=== PATIENT | female | born 1950 | race Caucasian/White ===

== ENCOUNTER 2020-11-15 17:01 | Emergency (ER) | payer OTHER ==
[~2020-11-15] VITALS: Ht 162.6 cm; Wt 63.5 kg
[2020-11-15] MEDS ORDERED: SODIUM CHLORIDE 0.9% 1,000 ML IV ONE ×2 (17:45)
[2020-11-15 18:11] LABS: Albumin 2.9 g/dL (3.4-5.0); Anion Gap 11 (5-15); Blood Urea Nitrogen 10 mg/dL (7-18); Calcium 8.9 mg/dL (8.5-10.1); Carbon Dioxide 23 mmol/L (21-32); Chloride 102 mmol/L (98-107); Glucose 119 mg/dL (74-106); Potassium 3.6 mmol/L (3.5-5.1); Sodium 136 mmol/L (136-145)
[2020-11-15 18:16] LABS: Alanine Aminotransferase 10 U/L (13-56); Alkaline Phosphatase 57 U/L (45-117); Aspartate Aminotransferase 13 U/L (15-37); BUN/Creatinine Ratio 16.4; Bilirubin, Total 0.2 mg/dL (0.2-1.0); GFR African American 125 mL/min; GFR Non-African American 103 mL/min; Total Protein 7.2 g/dL (6.4-8.2)
[2020-11-15 18:18] LABS: Basophils # (auto) 0 10 ^3/uL (0-0.2); Basophils % (auto) 0.3 % (0.0-2.0); Eosinophils # (auto) 0.1 10 ^3/uL (0-0.8); Eosinophils % (auto) 0.9 % (0.0-7.0); Hematocrit 32.2 % (36.0-46.0); Hemoglobin 10.7 g/dL (12.2-16.2); Lymphocytes % (auto) 12.2 % (10.0-50.0); Mean Corpuscular Hgb Conc. 33.2 g/dL (32.0-36.0); Mean Corpuscular Volume 87.3 fL (80.0-100.0); Monocytes # (auto) 0.6 10 ^3/uL (0-1.3); Monocytes % (auto) 7.7 % (0.0-12.0); Neutrophils # (auto) 6.5 10 ^3/uL (1.6-8.6); Neutrophils % (auto) 78.9 % (37.0-80.0); Red Blood Cells 3.69 10^6/uL (4.0-5.20); White Blood Cell 8.2 10^3/uL (4.4-10.8)
[2020-11-15] MEDS ORDERED: METOPROLOL TARTRATE 25 MG TAB PO ONE (18:30)
[2020-11-15 18:37] LABS: INR 1.08 (0.9-1.15); Partial Thromboplastin Time 27.6 sec (23.6-33.0)
[2020-11-15 20:29] LABS: Urine Bacteria FEW /hpf (None Seen); Urine Blood 3+ /uL (Negative); Urine Hyaline Cast FEW /lpf (0 - 2); Urine Specific Gravity 1.009 (1.001-1.035); Urine WBC 120 /hpf (0 - 5)
[2020-11-15] MEDS ORDERED: cefTRIAXone 1GM/50ML D5W 50 ML IV ONE (21:30)
[2020-11-16 03:29] VITALS: BP 137/59
== END 2020-11-16 04:13 | disposition short-term general hospital (02) ==
LOC: ER 17:01 → EDBD 17:01 → ER 11-16 04:13
DX: I47.1 Supraventricular tachycardia (principal); I48.91 Unspecified atrial fibrillation; E11.9 Type 2 diabetes mellitus without complications; Z20.822 Contact with and (suspected) exposure to COVID-19; Z85.3 Personal history of malignant neoplasm of breast
CPT/HCPCS: 36415; 71045; 80053; 81001; 83880; 84484; 85025; 85610; 85730; 87426; 93005; 96361; 96365; 96366; 99285; J0696; J7030

== ENCOUNTER 2021-03-22 22:58 | Inpatient (IN) | payer OTHER, MEDICAID ==
[~2021-03-22] VITALS: Ht 162.6 cm; Wt 63.5 kg
[2021-03-22] MEDS ORDERED: SODIUM CHLORIDE 0.9% 1,000 ML IVB ONE (23:15)
[2021-03-22 23:51] LABS: Basophils # (auto) 0 10 ^3/uL (0-0.2); Eosinophils # (auto) 0.1 10 ^3/uL (0-0.8); Mean Corpuscular Volume 74.6 fL (80.0-100.0); Monocytes # (auto) 0.8 10 ^3/uL (0-1.3); Nucleated Red Blood Cells % 0.1 %; Red Blood Cells 1.48 10^6/uL (4.0-5.20); White Blood Cell 10.4 10^3/uL (4.4-10.8)
[2021-03-22 23:54] LABS: Basophils % (auto) 0.5 % (0.0-2.0); Eosinophils % (auto) 0.7 % (0.0-7.0); Hematocrit 11.1 % (36.0-46.0); Lymphocytes # (auto) 1.5 10 ^3/uL (0.4-5.4); Lymphocytes % (auto) 14.3 % (10.0-50.0); Mean Corpuscular Hgb Conc. 32.2 g/dL (32.0-36.0); Monocytes % (auto) 7.6 % (0.0-12.0); Neutrophils % (auto) 76.9 % (37.0-80.0); Red Cell Distribution Width 15.7 % (11.8-14.3)
[2021-03-22 23:59] LABS: Hemoglobin 3.6 g/dL (12.2-16.2)
[2021-03-23] VITALS (14 sets, daily range): BP systolic 120–139; BP diastolic 33–66
[2021-03-23 08:45] LABS: Basophils # (auto) 0 10 ^3/uL (0-0.2); Hematocrit 17.6 % (36.0-46.0); Lymphocytes # (auto) 1.2 10 ^3/uL (0.4-5.4); Monocytes # (auto) 0.7 10 ^3/uL (0-1.3); White Blood Cell 8.8 10^3/uL (4.4-10.8)
[2021-03-23 08:48] LABS: Basophils % (auto) 0.2 % (0.0-2.0); Eosinophils # (auto) 0.1 10 ^3/uL (0-0.8); Eosinophils % (auto) 0.7 % (0.0-7.0); Lymphocytes % (auto) 13.9 % (10.0-50.0); Mean Corpuscular Hemoglobin 26.1 pg (28.0-32.0); Mean Corpuscular Hgb Conc. 32.4 g/dL (32.0-36.0); Mean Corpuscular Volume 80.4 fL (80.0-100.0); Monocytes % (auto) 7.7 % (0.0-12.0); Neutrophils # (auto) 6.8 10 ^3/uL (1.6-8.6); Neutrophils % (auto) 77.5 % (37.0-80.0); Nucleated Red Blood Cells % 0.1 %; Red Blood Cells 2.19 10^6/uL (4.0-5.20); Red Cell Distribution Width 16.5 % (11.8-14.3)
[2021-03-23 09:10] LABS: Hemoglobin 5.7 g/dL (12.2-16.2)
[2021-03-23] MEDS ORDERED: MEGESTROL ACETATE 20 MG TAB PO ONE (10:30)
[2021-03-23] MEDS ORDERED: medroxyPROGESTERone ACETATE 5 MG TAB PO ONE (10:30)
[2021-03-23] MEDS ORDERED: NITROGLYCERIN 0.4 MG SL TAB SL PRN ×2 (10:30→12:30)
[2021-03-23] MEDS ORDERED: MORPHINE SULFATE INJECTION 2 MG/ML SYRG IV PRN ×3 (10:30→12:30)
[2021-03-23] MEDS ORDERED: SODIUM CHLORIDE 0.9% 1,000 ML IV ONE (10:30)
[2021-03-23] MEDS ORDERED: cefTRIAXone 1GM/50ML D5W 50 ML IV ONE (10:45)
[2021-03-23] MEDS ORDERED: LABETALOL HCL 5 MG/ML 4ML SYRINGE IV PRN (12:00)
[2021-03-23] MEDS ORDERED: CLINDAMYCIN 600MG IV 50 ML IV ONE (12:00)
[2021-03-23] MEDS ORDERED: dilTIAZem 120MG ER CAP PO ONE (12:00)
[2021-03-23] MEDS ORDERED: DEXTROSE (50%) 50ML SYRG IV PRN (12:00)
[2021-03-23] MEDS ORDERED: METOPROLOL SUCCINATE XL 50 MG TAB PO ONE (12:00)
[2021-03-23] MEDS ORDERED: DOCUSATE SOD 100 MG CAP PO PRN (12:30)
[2021-03-23] MEDS ORDERED: TEMAZEPAM 15 MG CAP PO PRN (12:30)
[2021-03-23] MEDS ORDERED: ONDANSETRON HCL 4 MG/2 ML VIAL IV PRN (12:30)
[2021-03-23] MEDS ORDERED: ACETAMINOPHEN 325 MG TAB PO PRN (12:30)
[2021-03-23] MEDS ORDERED: ALUM & MAG HYDROX-SIMETH LIQ(MAALOX) 30 ML PO PRN (12:30)
[2021-03-23] MEDS ORDERED: HYDROcodone-ACET 5/325MG TAB PO PRN (12:30)
[2021-03-23] MEDS: InsuLIN REG 1unit/0.01ml Soln (100units/ml) SC SCH ×2 (17:00→22:38)
[2021-03-23] MEDS: ACCU-CHEK COMFORT CURVE STRIP VI SCH ×2 (17:00→22:38)
[2021-03-23 17:55] LABS: Basophils # (auto) 0 10 ^3/uL (0-0.2); Hemoglobin 7.2 g/dL (12.2-16.2); Mean Corpuscular Hemoglobin 26.9 pg (28.0-32.0); Mean Corpuscular Volume 81.4 fL (80.0-100.0); Monocytes # (auto) 0.8 10 ^3/uL (0-1.3); Red Blood Cells 2.67 10^6/uL (4.0-5.20)
[2021-03-23 17:57] LABS: Basophils % (auto) 0.2 % (0.0-2.0); Eosinophils # (auto) 0 10 ^3/uL (0-0.8); Eosinophils % (auto) 0.5 % (0.0-7.0); Hematocrit 21.8 % (36.0-46.0); Lymphocytes # (auto) 1.2 10 ^3/uL (0.4-5.4); Lymphocytes % (auto) 12.2 % (10.0-50.0); Monocytes % (auto) 8.2 % (0.0-12.0); Neutrophils # (auto) 7.5 10 ^3/uL (1.6-8.6); Neutrophils % (auto) 78.9 % (37.0-80.0); Nucleated Red Blood Cells % 0.3 %; Red Cell Distribution Width 16.9 % (11.8-14.3); White Blood Cell 9.5 10^3/uL (4.4-10.8)
[2021-03-23 18:10] LABS: INR 1.04 (0.9-1.15); Partial Thromboplastin Time 22.1 sec (23.6-33.0)
[2021-03-23] MEDS ORDERED: ATORVASTATIN 20 MG TAB PO SCH (22:00)
[2021-03-23] MEDS: CLINDAMYCIN 600MG IV 50 ML IV SCH (22:50)
[2021-03-23] MEDS: medroxyPROGESTERone ACETATE 5 MG TAB PO SCH (22:55)
[2021-03-24 00:30] VITALS: BP 131/56
[2021-03-24 02:20] LABS: Basophils # (auto) 0 10 ^3/uL (0-0.2); Basophils % (auto) 0.4 % (0.0-2.0); Eosinophils # (auto) 0.1 10 ^3/uL (0-0.8); Monocytes # (auto) 0.8 10 ^3/uL (0-1.3); Neutrophils # (auto) 7.3 10 ^3/uL (1.6-8.6)
[2021-03-24 02:22] LABS: Eosinophils % (auto) 0.7 % (0.0-7.0); Hematocrit 20.1 % (36.0-46.0); Lymphocytes # (auto) 0.9 10 ^3/uL (0.4-5.4); Mean Corpuscular Hemoglobin 26.6 pg (28.0-32.0); Mean Corpuscular Hgb Conc. 32.8 g/dL (32.0-36.0); Mean Corpuscular Volume 81.1 fL (80.0-100.0); Neutrophils % (auto) 79.9 % (37.0-80.0); Nucleated Red Blood Cells % 0.1 %; Red Blood Cells 2.48 10^6/uL (4.0-5.20); Red Cell Distribution Width 17.3 % (11.8-14.3); White Blood Cell 9.1 10^3/uL (4.4-10.8)
[2021-03-24 02:29] LABS: Hemoglobin 6.6 g/dL (12.2-16.2)
[2021-03-24] MEDS ORDERED: TRANEXAMIC ACID 10 ML ONE (03:55)
[2021-03-24] MEDS ORDERED: TRANEXAMIC ACID 1,000 MG in SODIUM CHL 0.9% 100 ML IV ONE (04:30)
[2021-03-24] MEDS: medroxyPROGESTERone ACETATE 5 MG TAB PO SCH ×2 (06:00→09:47)
[2021-03-24] MEDS: CLINDAMYCIN 600MG IV 50 ML IV SCH (06:24)
[2021-03-24] MEDS: InsuLIN REG 1unit/0.01ml Soln (100units/ml) SC SCH ×2 (06:42→11:30)
[2021-03-24] MEDS: ACCU-CHEK COMFORT CURVE STRIP VI SCH ×2 (06:42→11:30)
[2021-03-24 07:47] LABS: Basophils # (auto) 0 10 ^3/uL (0-0.2); Basophils % (auto) 0.2 % (0.0-2.0); Eosinophils # (auto) 0.1 10 ^3/uL (0-0.8); Hematocrit 18.3 % (36.0-46.0); Monocytes # (auto) 0.8 10 ^3/uL (0-1.3); Nucleated Red Blood Cells % 0.1 %; Red Cell Distribution Width 16.7 % (11.8-14.3); White Blood Cell 8.6 10^3/uL (4.4-10.8)
[2021-03-24 07:52] LABS: Lymphocytes % (auto) 11.2 % (10.0-50.0); Mean Corpuscular Hgb Conc. 33.4 g/dL (32.0-36.0); Monocytes % (auto) 9.1 % (0.0-12.0); Neutrophils # (auto) 6.8 10 ^3/uL (1.6-8.6); Neutrophils % (auto) 78.5 % (37.0-80.0); Red Blood Cells 2.26 10^6/uL (4.0-5.20)
[2021-03-24 07:55] LABS: INR 1.09 (0.9-1.15); Partial Thromboplastin Time 25.2 sec (23.6-33.0)
[2021-03-24 08:44] LABS: Albumin 2.3 g/dL (3.4-5.0); BUN/Creatinine Ratio 12.8; Bilirubin, Total 0.5 mg/dL (0.2-1.0); Calcium 7.8 mg/dL (8.5-10.1); Phosphorus 3.8 mg/dL (2.5-4.90); Total Protein 5.5 g/dL (6.4-8.2); Uric Acid 4.1 mg/dL (2.6-6.0)
[2021-03-24 08:54] LABS: % Iron Saturation 7.1 % (15-50)
[2021-03-24 08:56] LABS: Hemoglobin 6.1 g/dL (12.2-16.2)
[2021-03-24] MEDS: cefTRIAXone 1GM/50ML D5W 50 ML IV SCH ×2 (09:48→11:34)
[2021-03-24] MEDS ORDERED: METOPROLOL SUCCINATE XL 50 MG TAB PO SCH (10:00)
[2021-03-24] MEDS ORDERED: dilTIAZem 120MG ER CAP PO SCH (10:00)
[2021-03-24 11:29] VITALS: BP 125/38
[2021-03-24] MEDS ORDERED: ACETAMINOPHEN 325 MG TAB PO ONE ×2 (11:30)
== END 2021-03-24 11:45 | disposition short-term general hospital (02) | DRG 811 ==
LOC: ER 22:58 → EDBD 22:58 → EDSEX 22:58 → TELE 03-23 11:47
PROVIDERS: ADMIT Hospitalist; ATTEND Hospitalist
PROC: 30233K1 Transfusion of Nonautologous Frozen Plasma into Peripheral Vein, Percutaneous Approach (ICD-10-PCS; principal; 2021-03-23)
PROC: 30233N1 Transfusion of Nonautologous Red Blood Cells into Peripheral Vein, Percutaneous Approach (ICD-10-PCS; 2021-03-23)
DX: D64.9 Anemia, unspecified (principal); E43 Unspecified severe protein-calorie malnutrition; N39.0 Urinary tract infection, site not specified; I16.9 Hypertensive crisis, unspecified; N93.9 Abnormal uterine and vaginal bleeding, unspecified; C54.1 Malignant neoplasm of endometrium; I48.0 Paroxysmal atrial fibrillation; E11.9 Type 2 diabetes mellitus without complications; E78.5 Hyperlipidemia, unspecified; Z20.822 Contact with and (suspected) exposure to COVID-19; I10 Essential (primary) hypertension; E66.01 Morbid (severe) obesity due to excess calories; Z68.24 Body mass index [BMI] 24.0-24.9, adult; Z85.3 Personal history of malignant neoplasm of breast; Z85.828 Personal history of other malignant neoplasm of skin; Z79.4 Long term (current) use of insulin
CPT/HCPCS: 36415; 36430; 74176; 76856; 80053; 82306; 82962; 83540; 83550; 83735; 83880; 84100; 84443; 84484; 84550; 85025; 85379; 85610; 85730; 86850; 86900; 86901; 86920; 87040; 87426; 93005; 96361; 96365; G0378; J0696; J3490

== ENCOUNTER 2022-04-03 15:27 | Inpatient (IN) | payer OTHER, MEDICAID ==
[~2022-04-03] VITALS: Ht 162.6 cm; Wt 61.3 kg
[2022-04-03 17:01] LABS: Basophils # (auto) 0 10 ^3/uL (0-0.2); Basophils % (auto) 0.1 % (0.0-2.0); Eosinophils # (auto) 0 10 ^3/uL (0-0.8); Eosinophils % (auto) 0.1 % (0.0-7.0); Mean Corpuscular Volume 66.8 fL (80.0-100.0); Monocytes # (auto) 1.1 10 ^3/uL (0-1.3); Nucleated Red Blood Cells % 0.2 %
[2022-04-03 17:04] LABS: Hematocrit 17.2 % (36.0-46.0); Lymphocytes % (auto) 6.9 % (10.0-50.0); Mean Corpuscular Hemoglobin 18.8 pg (28.0-32.0); Mean Corpuscular Hgb Conc. 28.1 g/dL (32.0-36.0); Monocytes % (auto) 7.7 % (0.0-12.0); Neutrophils # (auto) 12.1 10 ^3/uL (1.6-8.6); Neutrophils % (auto) 85.2 % (37.0-80.0); Red Blood Cells 2.58 10^6/uL (4.0-5.20); Red Cell Distribution Width 18.4 % (11.8-14.3); White Blood Cell 14.2 10^3/uL (4.4-10.8)
[2022-04-03 17:23] LABS: Albumin 2.2 g/dL (3.4-5.0); Anion Gap 8 (5-15); Blood Urea Nitrogen 21 mg/dL (7-18); Calcium 8.3 mg/dL (8.5-10.1); Carbon Dioxide 24 mmol/L (21-32); Chloride 103 mmol/L (98-107); Glucose 111 mg/dL (74-106); Hemoglobin 4.8 g/dL (12.2-16.2); Sodium 135 mmol/L (136-145)
[2022-04-03 17:25] LABS: Alanine Aminotransferase < 6 U/L (13-56); BUN/Creatinine Ratio 33.3; GFR African American 120 mL/min; GFR Non-African American 99 mL/min
[2022-04-03 17:28] LABS: Alkaline Phosphatase 68 U/L (45-117); Aspartate Aminotransferase 8 U/L (15-37); Bilirubin, Total 0.3 mg/dL (0.2-1.0); Total Protein 6.1 g/dL (6.4-8.2)
[2022-04-03] MEDS ORDERED: MORPHINE SULFATE INJ 2 MG/ml SYRG IV PRN ×2 (19:00)
[2022-04-03] MEDS ORDERED: DEXTROSE (50%) 50ML SYRG IV PRN (19:00)
[2022-04-03] MEDS ORDERED: HYDROcodone-ACET 5/325MG TAB PO PRN (19:00)
[2022-04-03] MEDS ORDERED: NITROGLYCERIN 0.4 MG SL TAB SL PRN (19:00)
[2022-04-03] MEDS ORDERED: ATEN50TA PO (19:12)
[2022-04-03] MEDS ORDERED: DILT-14 PO (19:12)
[2022-04-03] MEDS ORDERED: PREG-111 PO (19:12)
[2022-04-03] MEDS ORDERED: cefTRIAXone 1GM/50ML D5W 50 ML IV ONE (19:30)
[2022-04-03 20:03] LABS: Cholesterol 167 mg/dL (< 200); Triglycerides 244 mg/dL (< 150)
[2022-04-03 20:05] LABS: INR 1.06 (0.9-1.15)
[2022-04-03 20:06] LABS: HDL Cholesterol 33 mg/dL (40-59); LDL Cholesterol 106 mg/dL (< 100)
[2022-04-03 20:11] LABS: Ferritin 15.1 ng/mL (10-322)
[2022-04-03 20:12] LABS: Folate (Folic Acid) 6.55 ng/mL (5.38-24)
[2022-04-03 20:57] LABS: % Iron Saturation 2.8 % (15-50)
[2022-04-03] MEDS: CLINDAMYCIN 600MG IV 50 ML IV SCH (22:00)
[2022-04-03] MEDS: InsuLIN REG 1unit/0.01ml Soln (100units/ml) SC SCH (22:41)
[2022-04-03] MEDS: ACCU-CHEK COMFORT CURVE STRIP VI SCH (22:41)
[2022-04-03] MEDS: ATENOLOL 50 MG TAB PO SCH (22:42)
[2022-04-03] MEDS: PREGABALIN CAPSULE 75 MG CAP PO SCH (23:10)
[2022-04-03] MEDS: ACETAMINOPHEN 325 MG TAB PO PRN (23:13)
[2022-04-03 23:26] VITALS: BP 110/34
[2022-04-03 23:50] VITALS: BP 108/31
[2022-04-04] VITALS (7 sets, daily range): BP systolic 102–113; BP diastolic 36–59
[2022-04-04] MEDS: SODIUM CHLORIDE 0.9% 1,000 ML IV SCH ×4 (04:43→13:45)
[2022-04-04] MEDS: CLINDAMYCIN 600MG IV 50 ML IV SCH ×3 (06:07→23:40)
[2022-04-04] MEDS: InsuLIN REG 1unit/0.01ml Soln (100units/ml) SC SCH ×2 (06:21→11:30)
[2022-04-04] MEDS: ACCU-CHEK COMFORT CURVE STRIP VI SCH ×2 (06:21→11:55)
[2022-04-04 07:06] LABS: Basophils # (auto) 0 10 ^3/uL (0-0.2); Basophils % (auto) 0.2 % (0.0-2.0); Eosinophils # (auto) 0.1 10 ^3/uL (0-0.8); Eosinophils % (auto) 0.5 % (0.0-7.0); Hematocrit 26.7 % (36.0-46.0); Hemoglobin 8.4 g/dL (12.2-16.2); Lymphocytes % (auto) 8.4 % (10.0-50.0); Mean Corpuscular Hgb Conc. 31.3 g/dL (32.0-36.0); Mean Corpuscular Volume 76.7 fL (80.0-100.0); Monocytes % (auto) 8.6 % (0.0-12.0); Neutrophils # (auto) 9.5 10 ^3/uL (1.6-8.6); Neutrophils % (auto) 82.3 % (37.0-80.0); Nucleated Red Blood Cells % 0.2 %; Red Blood Cells 3.48 10^6/uL (4.0-5.20); White Blood Cell 11.6 10^3/uL (4.4-10.8)
[2022-04-04 07:11] LABS: Red Cell Distribution Width 24.8 % (11.8-14.3)
[2022-04-04 07:25] LABS: Chloride 105 mmol/L (98-107); Sodium 136 mmol/L (136-145)
[2022-04-04 07:33] LABS: Alanine Aminotransferase < 6 U/L (13-56); Albumin 2.2 g/dL (3.4-5.0); Alkaline Phosphatase 63 U/L (45-117); Anion Gap 9 (5-15); Aspartate Aminotransferase 11 U/L (15-37); BUN/Creatinine Ratio 33.3; Bilirubin, Total 0.6 mg/dL (0.2-1.0); Blood Urea Nitrogen 17 mg/dL (7-18); Calcium 7.8 mg/dL (8.5-10.1); Carbon Dioxide 22 mmol/L (21-32); GFR African American 153 mL/min; GFR Non-African American 126 mL/min; Glucose 91 mg/dL (74-106)
[2022-04-04] MEDS: cefTRIAXone 1GM/50ML D5W 50 ML IV SCH (08:54)
[2022-04-04] MEDS: PREGABALIN CAPSULE 75 MG CAP PO SCH ×2 (09:53→23:32)
[2022-04-04] MEDS: ATENOLOL 50 MG TAB PO SCH (09:54)
[2022-04-04] MEDS ORDERED: PANTOPRAZOLE 40 MG/10 ML VIAL INJ IV SCH (10:00)
[2022-04-04] MEDS ORDERED: dilTIAZem 120MG ER CAP PO SCH (10:00)
[2022-04-04 12:05] LABS: Hematocrit 26.1 % (36.0-46.0); Hemoglobin 7.9 g/dL (12.2-16.2)
[2022-04-04] MEDS ORDERED: PREGABALIN CAPSULE 75 MG CAP PO ONE (13:45)
[2022-04-04 14:15] LABS: Urine Bacteria FEW /hpf (None Seen); Urine Blood TRACE /uL (Negative); Urine Mucus FEW (None Seen); Urine Specific Gravity 1.025 (1.001-1.035); Urine WBC 81 /hpf (0 - 5)
[2022-04-04] MEDS: ACETAMINOPHEN 325 MG TAB PO PRN ×2 (15:09→23:42)
[2022-04-04 18:22] LABS: Hematocrit 17.9 % (36.0-46.0)
[2022-04-04 18:27] LABS: Hemoglobin 5.5 g/dL (12.2-16.2)
[2022-04-05] VITALS (10 sets, daily range): BP systolic 107–135; BP diastolic 46–72
[2022-04-05] MEDS: SODIUM CHLORIDE 0.9% 1,000 ML IV SCH ×3 (03:18→16:11)
[2022-04-05] MEDS: CLINDAMYCIN 600MG IV 50 ML IV SCH ×3 (06:53→21:58)
[2022-04-05 07:37] LABS: Basophils # (auto) 0 10 ^3/uL (0-0.2); Eosinophils # (auto) 0.1 10 ^3/uL (0-0.8); Lymphocytes # (auto) 0.9 10 ^3/uL (0.4-5.4); Mean Corpuscular Hgb Conc. 31.3 g/dL (32.0-36.0); Nucleated Red Blood Cells % 0.2 %
[2022-04-05 07:38] LABS: Basophils % (auto) 0.3 % (0.0-2.0); Eosinophils % (auto) 0.6 % (0.0-7.0); Hematocrit 32.1 % (36.0-46.0); Lymphocytes % (auto) 7.5 % (10.0-50.0); Mean Corpuscular Hemoglobin 25.1 pg (28.0-32.0); Mean Corpuscular Volume 80.1 fL (80.0-100.0); Monocytes % (auto) 8.4 % (0.0-12.0); Neutrophils # (auto) 9.5 10 ^3/uL (1.6-8.6); Neutrophils % (auto) 83.2 % (37.0-80.0); White Blood Cell 11.4 10^3/uL (4.4-10.8)
[2022-04-05 07:43] LABS: Red Cell Distribution Width 22.6 % (11.8-14.3)
[2022-04-05] MEDS: ACETAMINOPHEN 325 MG TAB PO PRN ×2 (07:47→21:57)
[2022-04-05 07:54] LABS: BUN/Creatinine Ratio 31.6; Calcium 7.5 mg/dL (8.5-10.1); Potassium 3.8 mmol/L (3.5-5.1)
[2022-04-05] MEDS: cefTRIAXone 1GM/50ML D5W 50 ML IV SCH (09:09)
[2022-04-05] MEDS: PREGABALIN CAPSULE 75 MG CAP PO SCH ×2 (11:31→21:56)
[2022-04-06] MEDS: SODIUM CHLORIDE 0.9% 1,000 ML IV SCH ×2 (03:20→16:54)
[2022-04-06 05:00] VITALS: BP 119/68
[2022-04-06] MEDS: CLINDAMYCIN 600MG IV 50 ML IV SCH ×2 (05:37→14:33)
[2022-04-06] MEDS: ACETAMINOPHEN 325 MG TAB PO PRN ×2 (06:19→14:51)
[2022-04-06 09:00] VITALS: BP 129/61
[2022-04-06] MEDS: cefTRIAXone 1GM/50ML D5W 50 ML IV SCH (10:55)
[2022-04-06] MEDS: PREGABALIN CAPSULE 75 MG CAP PO SCH (10:55)
[2022-04-06 12:38] LABS: Basophils # (auto) 0 10 ^3/uL (0-0.2); Basophils % (auto) 0.2 % (0.0-2.0); Eosinophils # (auto) 0.1 10 ^3/uL (0-0.8); Monocytes # (auto) 1.1 10 ^3/uL (0-1.3); Nucleated Red Blood Cells % 0.1 %; White Blood Cell 13.9 10^3/uL (4.4-10.8)
[2022-04-06 12:40] LABS: Eosinophils % (auto) 0.6 % (0.0-7.0); Hematocrit 34.3 % (36.0-46.0); Hemoglobin 10.6 g/dL (12.2-16.2); Lymphocytes # (auto) 0.8 10 ^3/uL (0.4-5.4); Lymphocytes % (auto) 5.5 % (10.0-50.0); Mean Corpuscular Hemoglobin 25.2 pg (28.0-32.0); Mean Corpuscular Hgb Conc. 30.9 g/dL (32.0-36.0); Mean Corpuscular Volume 81.5 fL (80.0-100.0); Monocytes % (auto) 7.7 % (0.0-12.0)
[2022-04-06 13:00] VITALS: BP 122/74
[2022-04-06 13:08] LABS: Red Cell Distribution Width 23.6 % (11.8-14.3)
[2022-04-06 17:22] VITALS: BP 130/76
[2022-04-06 20:43] VITALS: BP 127/66
== END 2022-04-06 21:21 | disposition short-term general hospital (02) | DRG 812 ==
LOC: EDBD 15:27 → ER 15:27 → TELE 19:01 → TELE-WESTW 04-05 10:11
PROVIDERS: ADMIT Registered Nurse; ATTEND Internal Medicine
PROC: 30233N1 Transfusion of Nonautologous Red Blood Cells into Peripheral Vein, Percutaneous Approach (ICD-10-PCS; principal; 2022-04-03)
DX: D50.0 Iron deficiency anemia secondary to blood loss (chronic) (principal); N39.0 Urinary tract infection, site not specified; E44.0 Moderate protein-calorie malnutrition; E11.9 Type 2 diabetes mellitus without complications; I10 Essential (primary) hypertension; N93.9 Abnormal uterine and vaginal bleeding, unspecified; Z66 Do not resuscitate; E78.5 Hyperlipidemia, unspecified; C54.1 Malignant neoplasm of endometrium; I48.91 Unspecified atrial fibrillation; Z20.822 Contact with and (suspected) exposure to COVID-19; Z51.5 Encounter for palliative care; Z85.3 Personal history of malignant neoplasm of breast; Z68.23 Body mass index [BMI] 23.0-23.9, adult
CPT/HCPCS: 36415; 71045; 80048; 80053; 80061; 81001; 82607; 82728; 82746; 82962; 83036; 83540; 83550; 83615; 84443; 85014; 85018; 85025; 85045; 85049; 85384; 85610; 86850; 86900; 86901; 86920; 87040; 87077; 87086; 87186; 87205; 87426; 93005; C9113; G0378; J0696; J3490

== ENCOUNTER 2022-05-12 14:45 | Emergency (ER) | payer OTHER, MEDICAID ==
[~2022-05-12] VITALS: Ht 162.6 cm; Wt 56.6 kg
[~2022-05-12 14:45] MED LIST: ATEN50TA PO; DILT-14 PO; PREG-111 PO
[2022-05-12] MEDS ORDERED: FLEET ENEMA(ADULT) 135 ML PR ONE (16:45)
[2022-05-12] MEDS ORDERED: FLEET MINERAL OIL ENEMA 133 ML PR ONE (16:45)
[2022-05-13 00:21] LABS: Urine Bacteria FEW /hpf (None Seen); Urine Blood Negative /uL (Negative); Urine Hyaline Cast MOD /lpf (0 - 2); Urine Mucus FEW (None Seen); Urine Specific Gravity 1.011 (1.001-1.035); Urine WBC 1 /hpf (0 - 5)
[2022-05-13] MEDS ORDERED: ONDANSETRON HCL 4 MG/2 ML VIAL IV ONE (00:30)
[2022-05-13] MEDS ORDERED: MAGNESIUM CITRATE SOLUTION 300 ML BTL PO ONE (00:30)
[2022-05-13] MEDS ORDERED: MORPHINE SULFATE INJ 2 MG/ml SYRG IV ONE (00:30)
[2022-05-13] MEDS ORDERED: POLYETHYLENE GLYCOL 17 GM PWDR PO ONE (00:30)
[2022-05-13] MEDS ORDERED: BISACODYL 5 MG EC TAB PO ONE (01:00)
[2022-05-13] MEDS ORDERED: HYDROmorphone HCL 2 MG/ML VL/or syr IV ONE (03:00)
[2022-05-13 03:36] VITALS: BP 114/54
== END 2022-05-13 06:45 | disposition home or self-care (01) ==
LOC: EDBD 14:45 → EDUNIT# 14:45 → ER 14:45
DX: K59.00 Constipation, unspecified (principal); E11.9 Type 2 diabetes mellitus without complications
CPT/HCPCS: 74018; 81001; 96374; 96375; 99285; J1170; J2270; J2405

== ENCOUNTER 2022-05-31 08:27 | Inpatient (IN) | payer OTHER, MEDICAID ==
[~2022-05-31] VITALS: Ht 152.4 cm; Wt 45.4 kg
[2022-05-31 09:39] LABS: Mean Corpuscular Hemoglobin 27.9 pg (28.0-32.0); Mean Corpuscular Hgb Conc. 32.2 g/dL (32.0-36.0); Mean Corpuscular Volume 86.7 fL (80.0-100.0); Red Blood Cells 3.22 10^6/uL (4.0-5.20)
[2022-05-31] MEDS ORDERED: IOHEXOL 350 MG/ML 100ML IJ ONE (09:43)
[2022-05-31] MEDS ORDERED: SODIUM CHLORIDE 0.9% 500 ML IV ONE (09:45)
[2022-05-31 09:52] LABS: White Blood Cell 30.7 10^3/uL (4.4-10.8)
[2022-05-31 09:55] LABS: Basophils % (manual) 0 (0.0-2.0); Blast Cells 0; Eosinophils % (manual) 0 (0-7); Metamyelocytes % 0; Monocytes % (manual) 0 (0-12); Myelocytes % 0; Promyelocytes % 0; Reactive Lymphocytes 0
[2022-05-31 10:09] LABS: Band Neutrophils % (manual) 2; Lymphocytes % (manual) 3 (10.0-50.0)
[2022-05-31 10:10] LABS: Albumin 1.7 g/dL (3.4-5.0); Calcium 7.5 mg/dL (8.5-10.1)
[2022-05-31 10:13] LABS: Bilirubin, Total 0.4 mg/dL (0.2-1.0); Total Protein 5.3 g/dL (6.4-8.2)
[2022-05-31 10:15] LABS: Potassium 6.2 mmol/L (3.5-5.1)
[2022-05-31 11:36] LABS: INR 0.99 (0.9-1.15); Partial Thromboplastin Time 28.1 sec (24.6-33.4)
[2022-05-31] MEDS ORDERED: CALCIUM GLUC 1,000mg/50ml-NS 50 ML IV ONE (11:45)
[2022-05-31] MEDS ORDERED: InsuLIN REG 1unit/0.01ml Soln (100units/ml) IV ONE (11:45)
[2022-05-31] MEDS ORDERED: DEXTROSE (50%) 50ML SYRG IV ONE (11:45)
[2022-05-31] MEDS ORDERED: SODIUM ZIRCONIUM CYCL 10 GM PAK PO ONE (11:45)
[2022-05-31] MEDS ORDERED: CEFEPIME 1GM/ 50ML 50 ML IV ONE (11:45)
[2022-05-31] MEDS ORDERED: VANCOMYCIN 1GM/250ML 250 ML IV ONE (11:45)
[2022-05-31] MEDS: ENOXAPARIN SOD 60 MG/0.6 ML SYRINGE SC ONE ×2 (11:49→15:56)
[2022-05-31 11:52] LABS: BUN/Creatinine Ratio 42.7 (10.0-20.0)
[2022-05-31] MEDS ORDERED: MORPHINE SULFATE INJ 2 MG/ml SYRG IV ONE (12:00)
[2022-05-31] MEDS ORDERED: VANCOMYCIN PER PHARMACY 0 MG IV SCH (12:45)
[2022-05-31] MEDS ORDERED: PANTOPRAZOLE 40 MG/10 ML VIAL INJ IV ONE (12:45)
[2022-05-31] MEDS ORDERED: DEXTROSE 10% 250 ML IV ONE (12:55)
[2022-05-31] MEDS ORDERED: DEXTROSE (50%) 50ML SYRG IV PRN (13:00)
[2022-05-31] MEDS ORDERED: ACETAMINOPHEN 325 MG TAB PO PRN (13:00)
[2022-05-31] MEDS ORDERED: SODIUM CHLORIDE 0.9% 1,000 ML IV SCH (13:00)
[2022-05-31] MEDS ORDERED: MORPHINE SULFATE INJ 2 MG/ml SYRG IV PRN (13:00)
[2022-05-31] MEDS ORDERED: NITROGLYCERIN 0.4 MG SL TAB SL PRN (13:00)
[2022-05-31 13:58] LABS: Lactic Acid w/Reflex 2.2 mmol/L (0.4-2.0)
[2022-05-31] MEDS ORDERED: ACCU-CHEK COMFORT CURVE STRIP VI SCH (16:00)
[2022-05-31] MEDS: InsuLIN REG 1unit/0.01ml Soln (100units/ml) SC SCH ×2 (16:00→20:00)
[2022-05-31 16:30] LABS: BUN/Creatinine Ratio 49.4 (10.0-20.0)
[2022-05-31 16:37] LABS: Potassium 5.6 mmol/L (3.5-5.1)
[2022-05-31] MEDS: SODIUM ZIRCONIUM CYCL 10 GM PAK PO SCH ×2 (17:03→22:00)
[2022-05-31] MEDS ORDERED: VANCOMYCIN 750mg/250ml 250 ML IV SCH (18:00)
[2022-05-31] MEDS: ACCU-CHEK COMFORT CURVE STRIP VI SCH ×2 (20:00→22:00)
[2022-05-31] MEDS: DEXTROSE (50%) 50ML SYRG IV PRN ×2 (21:05→22:45)
[2022-05-31] MEDS ORDERED: FUROSEMIDE 20 MG/2 ML VIAL IV ONE (21:45)
[2022-05-31] MEDS: ATENOLOL 50 MG TAB PO SCH (22:00)
[2022-05-31] MEDS: PREGABALIN CAPSULE 75 MG CAP PO SCH (22:00)
[2022-05-31] MEDS: CEFEPIME 1GM/ 50ML 50 ML IV SCH (22:06)
[2022-05-31] MEDS: ENOXAPARIN SOD 60 MG/0.6 ML SYRINGE SC SCH (22:45)
[2022-05-31] MEDS: LORazepam 2MG/ML-1ML VIAL IV PRN ×2 (23:42→23:45)
[2022-06-01] MEDS ORDERED: DEXTROSE 10% 1,000 ML IV ONE (00:08)
[2022-06-01] MEDS ORDERED: DEXTROSE 10% 250 ML IV ONE (00:09)
[2022-06-01] MEDS: ACCU-CHEK COMFORT CURVE STRIP VI SCH ×16 (00:14→23:00)
[2022-06-01] MEDS: DEXTROSE (50%) 50ML SYRG IV PRN (00:16)
[2022-06-01 01:39] LABS: Urine Bacteria FEW /hpf (None Seen); Urine Blood Negative /uL (Negative); Urine Hyaline Cast FEW /lpf (0 - 2); Urine Specific Gravity 1.015 (1.001-1.035); Urine WBC 3 /hpf (0 - 5)
[2022-06-01] MEDS: InsuLIN REG 1unit/0.01ml Soln (100units/ml) SC SCH ×5 (04:00→20:00)
[2022-06-01] MEDS: SODIUM ZIRCONIUM CYCL 10 GM PAK PO SCH ×2 (06:00→14:00)
[2022-06-01 06:29] LABS: Eosinophils # (auto) 0 10 ^3/uL (0-0.8); Lymphocytes # (auto) 0.4 10 ^3/uL (0.4-5.4); Lymphocytes % (auto) 1.5 % (10.0-50.0)
[2022-06-01 06:32] LABS: Basophils # (auto) 0 10 ^3/uL (0-0.2); Basophils % (auto) 0.2 % (0.0-2.0); Hematocrit 20.2 % (36.0-46.0); Mean Corpuscular Hemoglobin 28.9 pg (28.0-32.0); Mean Corpuscular Hgb Conc. 33.1 g/dL (32.0-36.0); Mean Corpuscular Volume 87.4 fL (80.0-100.0); Monocytes # (auto) 0.9 10 ^3/uL (0-1.3); Monocytes % (auto) 3.4 % (0.0-12.0); Neutrophils # (auto) 24.7 10 ^3/uL (1.6-8.6); Neutrophils % (auto) 94.9 % (37.0-80.0); Red Blood Cells 2.31 10^6/uL (4.0-5.20)
[2022-06-01 06:39] LABS: Potassium 5.2 mmol/L (3.5-5.1)
[2022-06-01 06:45] LABS: Albumin 1.6 g/dL (3.4-5.0); BUN/Creatinine Ratio 45.7 (10.0-20.0); Bilirubin, Total 0.2 mg/dL (0.2-1.0); Calcium 7.9 mg/dL (8.5-10.1)
[2022-06-01 07:09] LABS: Hemoglobin 6.7 g/dL (12.2-16.2)
[2022-06-01] MEDS: LORazepam 2MG/ML-1ML VIAL IV PRN ×2 (08:44→20:17)
[2022-06-01] MEDS ORDERED: MORPHINE SULFATE INJ 2 MG/ml SYRG IV ONE (08:45)
[2022-06-01] MEDS ORDERED: dilTIAZem 120MG ER CAP PO SCH (10:00)
[2022-06-01] MEDS ORDERED: PANTOPRAZOLE 40 MG/10 ML VIAL INJ IV SCH (10:00)
[2022-06-01] MEDS: CEFEPIME 1GM/ 50ML 50 ML IV SCH (10:00)
[2022-06-01] MEDS: ATENOLOL 50 MG TAB PO SCH ×2 (11:08→23:01)
[2022-06-01] MEDS: PREGABALIN CAPSULE 75 MG CAP PO SCH (11:08)
[2022-06-01 14:00] VITALS: BP 98/46
[2022-06-01 14:15] VITALS: BP 108/47
[2022-06-01] MEDS: MORPHINE SULFATE INJ 2 MG/ml SYRG IV PRN ×2 (14:42→20:17)
[2022-06-01 17:56] VITALS: BP 91/42
[2022-06-01] MEDS ORDERED: VANCOMYCIN 750mg/250ml 250 ML IV SCH (18:00)
[2022-06-01] MEDS ORDERED: NOREPINEPHRINE 8 MG/250ML KIT 250 ML IV SCH (23:00)
[2022-06-01] MEDS ORDERED: PHENYLEPHRINE IV 250 ML IV SCH (23:00)
[2022-06-01] MEDS ORDERED: NITROGLYCERIN 0.4 MG SL TAB SL PRN (23:45)
[2022-06-01] MEDS ORDERED: MORPHINE SULFATE INJ 2 MG/ml SYRG IV PRN (23:45)
[2022-06-02] MEDS: PREGABALIN CAPSULE 75 MG CAP PO SCH (00:13)
[2022-06-02] MEDS: SODIUM ZIRCONIUM CYCL 10 GM PAK PO SCH (00:14)
[2022-06-02] MEDS: ENOXAPARIN SOD 60 MG/0.6 ML SYRINGE SC SCH ×2 (00:15→04:03)
[2022-06-02] MEDS: ACCU-CHEK COMFORT CURVE STRIP VI SCH ×11 (00:16→05:27)
[2022-06-02] MEDS: InsuLIN REG 1unit/0.01ml Soln (100units/ml) SC SCH ×3 (00:16→04:07)
[2022-06-02] MEDS: LORazepam 2MG/ML-1ML VIAL IV PRN ×2 (01:29→05:40)
[2022-06-02] MEDS: MORPHINE SULFATE INJ 2 MG/ml SYRG IV PRN ×2 (01:32→05:40)
[2022-06-02] MEDS: CEFEPIME 1GM/ 50ML 50 ML IV SCH (02:47)
[2022-06-02 04:49] LABS: Hemoglobin 8.2 g/dL (12.2-16.2)
[2022-06-02 04:50] LABS: Hematocrit 25.6 % (36.0-46.0); Mean Corpuscular Hemoglobin 29.2 pg (28.0-32.0); Mean Corpuscular Hgb Conc. 32.2 g/dL (32.0-36.0); Mean Corpuscular Volume 90.6 fL (80.0-100.0); Red Blood Cells 2.82 10^6/uL (4.0-5.20); Red Cell Distribution Width 15.3 % (11.8-14.3)
[2022-06-02 05:07] LABS: Albumin 1.7 g/dL (3.4-5.0); BUN/Creatinine Ratio 34.4 (10.0-20.0); Calcium 7.8 mg/dL (8.5-10.1)
[2022-06-02 05:09] LABS: White Blood Cell 31.2 10^3/uL (4.4-10.8)
[2022-06-02 05:10] LABS: Bilirubin, Total 0.3 mg/dL (0.2-1.0); Total Protein 5.5 g/dL (6.4-8.2)
[2022-06-02 05:11] LABS: Basophils % (manual) 0 (0.0-2.0); Blast Cells 0; Eosinophils % (manual) 0 (0-7); Metamyelocytes % 0; Myelocytes % 0; Promyelocytes % 0; Reactive Lymphocytes 0
[2022-06-02 05:43] LABS: Potassium 6.1 mmol/L (3.5-5.1)
[2022-06-02] MEDS ORDERED: VASOPRESSIN 20 UNITS in SODIUM CHL 0.9% 99 ML IV SCH (05:45)
[2022-06-02] MEDS ORDERED: HYDROmorphone HCL 2 MG/ML VL/or syr ONE (05:53)
[2022-06-02 06:00] VITALS: BP 41/23
[2022-06-02] MEDS ORDERED: HYDROmorphone HCL 2 MG/ML VL/or syr IV ONE (06:00)
[2022-06-02] MEDS ORDERED: LORazepam 2MG/ML-1ML VIAL IV ONE (06:00)
[2022-06-02 08:46] LABS: Band Neutrophils % (manual) 2; Lymphocytes % (manual) 3 (10.0-50.0); Monocytes % (manual) 5 (0-12)
[2022-06-02] MEDS ORDERED: CALCIUM CHLOR(10%) 100MG/ML 10ML SYRINGE IV ONE (10:38)
[2022-06-02] MEDS ORDERED: VANCOMYCIN 750mg/250ml 250 ML IV SCH (18:00)
[2022-06-03] MEDS ORDERED: ENOXAPARIN SOD 60 MG/0.6 ML SYRINGE SC SCH (10:00)
[2022-06-03] MEDS ORDERED: CEFEPIME 1GM/ 50ML 50 ML IV SCH (10:00)
== END 2022-06-02 06:05 | DRG 871 ==
LOC: ER 08:27 → EDBD 08:27 → TELE 12:55
PROVIDERS: ADMIT Nurse Practitioner Family; ATTEND Internal Medicine
PROC: 05H933Z Insertion of Infusion Device into Right Brachial Vein, Percutaneous Approach (ICD-10-PCS; 2022-05-31)
PROC: B54MZZA Ultrasonography of Right Upper Extremity Veins, Guidance (ICD-10-PCS; 2022-05-31)
PROC: 30233N1 Transfusion of Nonautologous Red Blood Cells into Peripheral Vein, Percutaneous Approach (ICD-10-PCS; principal; 2022-06-01)
DX: A41.9 Sepsis, unspecified organism (principal); E43 Unspecified severe protein-calorie malnutrition; J96.90 Respiratory failure, unspecified, unspecified whether with hypoxia or hypercapnia; I26.93 Single subsegmental thrombotic pulmonary embolism without acute cor pulmonale; J69.0 Pneumonitis due to inhalation of food and vomit; J91.0 Malignant pleural effusion; K92.2 Gastrointestinal hemorrhage, unspecified; C79.9 Secondary malignant neoplasm of unspecified site; Z68.1 Body mass index [BMI] 19.9 or less, adult; Z66 Do not resuscitate; C50.919 Malignant neoplasm of unspecified site of unspecified female breast; C55 Malignant neoplasm of uterus, part unspecified; Z51.5 Encounter for palliative care; I10 Essential (primary) hypertension; E87.5 Hyperkalemia; E78.5 Hyperlipidemia, unspecified; E11.9 Type 2 diabetes mellitus without complications; D64.9 Anemia, unspecified; Z20.822 Contact with and (suspected) exposure to COVID-19; I48.91 Unspecified atrial fibrillation; Z85.42 Personal history of malignant neoplasm of other parts of uterus; Z90.12 Acquired absence of left breast and nipple
CPT/HCPCS: 36415; 36600; 71045; 71275; 76604; 80048; 80053; 81001; 82805; 82962; 83605; 83880; 84484; 85007; 85025; 85027; 85610; 85730; 86850; 86900; 86901; 86920; 87426; 93005; 93306; 99291; G0378; J1815